=== PATIENT | female | born 1955 | race Caucasian/White ===

== ENCOUNTER 2016-08-02 13:24 | Outpatient (CLI) | payer OTHER | END 2016-08-02 23:59 | disposition short-term general hospital (02) | DX: R07.9 Chest pain, unspecified (principal) | CPT/HCPCS: A0170; A0425; A0427 ==

== ENCOUNTER 2016-08-23 10:28 | Outpatient (CLI) | payer OTHER | END 2016-08-23 10:29 | disposition home or self-care (01) | DX: R07.9 Chest pain, unspecified (principal); R00.2 Palpitations ==

== ENCOUNTER 2016-08-29 16:16 | Outpatient (CLI) | payer OTHER | END 2016-08-29 16:17 | disposition short-term general hospital (02) | LOC: EMS 16:16 | PROVIDERS: ATTEND Surgery | DX: R07.9 Chest pain, unspecified (principal); R20.2 Paresthesia of skin | CPT/HCPCS: A0425; A0427 ==

== ENCOUNTER 2018-11-20 12:03 | Outpatient (CLI) | payer OTHER ==
--- NOTE | 2018-11-20 15:16 | XRAY Report ---
Reason: PAIN OF LEFT HIP JOINT Procedure Date: 11/20/2018 Accession Number: [id number] / [id number] Procedure: XR - Hip w/Pelvis 2-3V LT CPT Code: FULL RESULT: EXAM: LEFT HIP RADIOGRAPHY EXAM DATE: 11/20/2018 12:31 PM. CLINICAL HISTORY: PAIN OF LEFT HIP JOINT. Left hip/groin pain for 2 months. Worse with activity. COMPARISON: XR HIP UNILAT MIN 2 VIEW 06/21/2011 2:[address] ABD AND PELVIS WITH CONTRAST 07/08/2012 2:10 PM. TECHNIQUE: 2 views. FINDINGS: Bones: No acute fracture or bony lesion. Minimal degenerative spurring. Joints: Mild joint space narrowing. No dislocation. Degenerative changes of the lower lumbar spine. Soft Tissues: Normal. No soft tissue swelling. IMPRESSION: 1. Mild degenerative changes of the left hip joint. RADIA
== END 2018-11-20 12:04 | disposition home or self-care (01) ==
LOC: DI 12:03
PROVIDERS: ATTEND Nurse Practitioner Family
DX: M16.12 Unilateral primary osteoarthritis, left hip (principal)

== ENCOUNTER 2019-01-12 19:15 | Observation (INO) | payer OTHER ==
--- NOTE | 2019-01-12 19:41 | ED Physician Documentation ---
PD HPI CHEST PAIN - Stated complaint Stated Complaint: CHEST PX/INCREASE BP - Chief complaint Chief Complaint: Cardiac - History obtained from History obtained from: Patient - History of Present Illness Timing - onset: Today Timing - duration: Hours (6) Timing - details: Gradual onset Quality: Indigestion Location: Substernal, Right chest Improved by: Nothing Associated symptoms: No: Shortness of air Similar symptoms before: Has not had sx before Recently seen: Not recently seen - Additional information Additional information: This is a 63-year-old woman who presents with her complains that around 2:00 in the afternoon she started to experience a little bit of heartburn she has reflux disease and did not think that much of it when she got home around 5 PM she took a Zantac and then was making dinner and she had felt drink some water and felt a little bit better. While she is making dinner she started to get this uncomfortable pain in her chest and then got this icy hot sensation that spread all the way upper upper torso and down her arms. That lasted for maybe 10 to 20 minutes. When she first got here she still had a little bit of residual pain in the right side of her chest but that is now gone. She is been feeling dizzy off and on for the past couple of days but did not feel short of breath with this. She does have a history of SVT and underwent ablation for that. Denies history of RI and has no family history of RI. She does see a rn employee health at [facility] cardiology and had a stress test done about 2 years ago. Patient has been having pain behind her left calf but denies any history of DVT and has had no peripheral edema. Review of Systems Constitutional: denies: Fever Eyes: denies: Loss of vision Ears: denies: Ear pain Nose: reports: Congestion Throat: denies: Sore throat Cardiac: reports: Chest pain / pressure, Palpitations, Calf pain. denies: Pedal edema Respiratory: denies: Dyspnea, Cough GI: reports: Nausea, Diarrhea. 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 : None HEENT: None Psych: Anxiety Musculoskeletal: None Derm: None - Past Surgical History Past Surgical History: Yes - Present Medications Home Medications: Ambulatory Orders Medication Instructions Recorded Confirmed ALPRAZolam [Xanax] 0.25 mg PO HS 04/05/13 03/24/16 Atenolol [Tenormin] 25 mg PO DAILY 04/05/13 03/24/16 Venlafaxine ER [Effexor ER] 75 mg PO DAILY 04/05/13 03/24/16 Omeprazole [PriLOSEC] 1 cap PO DAILY 03/24/16 03/24/16 oxyCODONE/ACET 5/325 [Percocet 5 1 - 2 each PO Q6H PRN #14 tablet 03/25/16 mg/325 mg] - Allergies Allergies/Adverse Reactions: Allergies Allergy/AdvReac Type Severity Reaction Status Date / Time azithromycin [From Zithromax] Allergy Intermediate upset Verified 01/12/19 19:21 stomach erythromycin base Allergy Intermediate stomach Verified 01/12/19 19:21 [Erythromycin Base] upset codeine AdvReac Intermediate Hallucinati Verified 01/12/19 19:21 ons - Social History Does the pt smoke?: No Smoking Status: Never smoker Does the pt drink ETOH?: Yes Does the pt have substance abuse?: No - Immunizations Immunizations are current?: Yes - POLST Patient has POLST: No PD ED PE NORMAL - Vitals Vital signs reviewed: Yes - General General: Alert and oriented X 3, No acute distress, Well developed/nourished, Other (She seems anxious, laughing inappropriately) - HEENT HEENT: Atraumatic, PERRL, Moist mucous membranes - Neck Neck: No adenopathy, Thyroid normal, No JVD - Cardiac Cardiac: RRR, No murmur - Respiratory Respiratory: No respiratory distress, Clear bilaterally - Abdomen Abdomen: Normal bowel sounds, Soft - Derm Derm: Normal color, No rash - Extremities Extremities: No deformity, No edema, No calf tenderness / cord - Neuro Neuro: Alert and oriented X 3, 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, No motor deficit, No sensory deficit, Normal speech - Psych Psych: Normal mood, Normal affect Results - Vitals Vitals: Vital Signs - 24 hr 01/12/19 01/12/19 01/12/19 19:21 19:46 21:30 Temperature 36.9 C Heart Rate 90 85 78 Respiratory 16 16 20 Rate Blood Pressure 194/108 H 175/91 H 159/91 H O2 Saturation 99 98 94 01/12/19 21:56 Temperature Heart Rate 84 Respiratory 17 Rate Blood Pressure 147/73 H O2 Saturation 97 Oxygen O2 Source Room air - EKG (time done) 1920 Rate: Rate (enter#) Rhythm: NSR QRS: Poor R wave progression Ischemia: ST depression (V5 and V6), Q waves (V1 and V2), Non specific changes Compare to prior EKG: Changed from prior EKG (Q waves are new from 2016) 2149 Rate: Rate (enter#) Rhythm: NSR Ischemia: ST depression, Q waves, Non specific changes Compare to prior EKG: Unchanged from prior EKG - Labs Labs: Laboratory Tests 01/12/19 01/12/19 01/12/19 19:45 19:45 19:45 WBC 7.6 RBC 4.04 L Hgb 12.1 Hct 36.5 L MCV 90.3 MCH 30.0 MCHC 33.2 RDW 12.4 Plt Count 194 MPV 10.2 Neut # (Auto) 4.7 Lymph # (Auto) 2.1 Bacon # (Auto) 0.5 Eos # (Auto) 0.2 Baso # (Auto) 0.1 Absolute Nucleated RBC 0.00 Nucleated RBC % 0.0 Sodium 141 Potassium 3.4 L Chloride 105 Carbon Dioxide 28 Anion Gap 8.0 BUN 19 Creatinine 0.9 Estimated GFR (MDRD) 63 L Glucose 118 H Calcium 8.9 Total Bilirubin 0.4 AST 17 ALT 17 Alkaline Phosphatase 94 Troponin I High Sens 2.4 Total Protein 7.4 Albumin 4.0 Globulin 3.4 Albumin/Globulin Ratio 1.2 Lipase 38 Urine Color Urine Clarity Urine pH Ur Specific [place] Urine Protein Urine Glucose (UA) Urine Ketones Urine Occult Blood Urine Nitrite Urine Bilirubin Urine Urobilinogen Ur Leukocyte Esterase Ur Microscopic Review Urine Culture Comments 01/12/19 01/12/19 19:53 23:15 WBC RBC Hgb Hct MCV MCH MCHC RDW Plt Count MPV Neut # (Auto) Lymph # (Auto) Bacon # (Auto) Eos # (Auto) Baso # (Auto) Absolute Nucleated RBC Nucleated RBC % Sodium Potassium Chloride Carbon Dioxide Anion Gap BUN Creatinine Estimated GFR (MDRD) Glucose Calcium Total Bilirubin AST ALT Alkaline Phosphatase Troponin I High Sens 9.7 Total Protein Albumin Globulin Albumin/Globulin Ratio Lipase Urine Color YELLOW Urine Clarity CLEAR Urine pH 6.0 Ur Specific [place] <=1.005 Urine Protein NEGATIVE Urine Glucose (UA) NEGATIVE Urine Ketones NEGATIVE Urine Occult Blood NEGATIVE Urine Nitrite NEGATIVE Urine Bilirubin NEGATIVE Urine Urobilinogen 0.2 (NORMAL) Ur Leukocyte Esterase NEGATIVE Ur Microscopic Review NOT INDICATED Urine Culture Comments NOT INDICATED PD MEDICAL DECISION MAKING - ED course Complexity details: reviewed results, re-evaluated patient, d/w patient, d/w family ED course: Patient was extremely anxious. She does have some EKG changes that were not present on a prior EKG in 2016. Her initial troponin is normal. Chest x-ray is clear. While waiting for repeat troponin she had 8 sequential beats of what appears to be a ventricular rhythm rate of about 100. She will be continued to be monitored while waiting for the repeat troponin. 2345: Repeat troponin was 9.7. I have a call into her rn employee health. 0015: Spoke with Dr. Paige who is on-call for cardiology. After reviewing the labs, EKG and rhythm strip the decision was made that she should be admitted for observation and stress testing tomorrow. Did not recommend anticoagulation at this time. Discussed with the hospitalist and he is agreed to accept the patient for admission. She did receive Xanax because she was so anxious when I went back into talk to her she told me that she got no relief for about 2 hours and that was all. Departure - Departure Disposition: 66 [facility] DC/Xfer Clinical Impression: Chest pain Qualifiers: Chest pain type: unspecified Qualified Code(s): R07.9 - Chest pain, unspecified
[2019-01-12 19:51] LABS: BASOPHILS # (AUTO) 0.1 10^3/uL (0.0-0.1); BASOPHILS % (AUTO) 0.7 %; EOSINOPHILS # (AUTO) 0.2 10^3/uL (0.0-0.7); EOSINOPHILS % (AUTO) 2.8 %; HGB - HEMOGLOBIN 12.1 g/dL (12.0-16.0); LYMPHOCYTES # (AUTO) 2.1 10^3/uL (1.5-3.5); LYMPHOCYTES % (AUTO) 27.3 %; MEAN CORPUSCULAR HGB CONC 33.2 g/dL (32.0-36.0); MEAN CORPUSCULAR VOLUME 90.3 fL (81.0-99.0); MEAN PLATELET VOLUME 10.2 fL (7.9-10.8); MONOCYTES # (AUTO) 0.5 10^3/uL (0.0-1.0); MONOCYTES % (AUTO) 7.1 %; NEUTROPHILS # (AUTO) 4.7 10^3/uL (1.5-6.6); NEUTROPHILS % (AUTO) 61.8 %; PLT - PLATELET COUNT 194 10^3/uL (130-450); RED BLOOD COUNT 4.04 10^6/uL (4.20-5.40); RED CELL DISTRIBUTION WIDTH 12.4 % (12.0-15.0); WHITE BLOOD COUNT 7.6 x10^3/uL (4.8-10.8)
[2019-01-12 20:05] LABS: ALBUMIN/GLOBULIN RATIO 1.2 (1.0-2.2); BILIRUBIN,TOTAL 0.4 mg/dL (0.2-1.0); CALCIUM 8.9 mg/dL (8.5-10.3); CREATININE 0.9 mg/dL (0.4-1.0); TOTAL PROTEIN 7.4 g/dL (6.7-8.2)
[2019-01-12] MEDS ORDERED: ONDANSETRON 4 MG/2 ML VIAL IVP STA (20:09)
[2019-01-12] MEDS ORDERED: ASPIRIN CHEW 81 MG TABLET PO STA (20:09)
[2019-01-12] MEDS ORDERED: FAMOTIDINE 20 MG/2 ML VIAL IVP STA (20:10)
[2019-01-12 20:32] LABS: BILIRUBIN,URINE NEGATIVE (NEGATIVE); GLUCOSE, URINE (UA) NEGATIVE (NEGATIVE); KETONES,URINE (UA) NEGATIVE (NEGATIVE); LEUKOCYTE ESTERASE, URINE NEGATIVE (NEGATIVE); NITRITE,URINE NEGATIVE (NEGATIVE); OCCULT BLOOD,URINE NEGATIVE (NEGATIVE); PROTEIN,URINE NEGATIVE (NEGATIVE); UROBILINOGEN,URINE 0.2 (NORMAL) E.U./dL (NORMAL)
[2019-01-12 20:40] LABS: CLARITY,URINE CLEAR (CLEAR)
--- NOTE | 2019-01-12 20:56 | XRAY Report ---
Reason: chest pain Procedure Date: 01/12/2019 Accession Number: [id number] / [id number] Procedure: XR - Chest 1 View X-Ray CPT Code: 13092 FULL RESULT: EXAM: CHEST RADIOGRAPHY EXAM DATE: 01/12/2019 08:21 PM. CLINICAL HISTORY: Chest pain. COMPARISON: CHEST 2 VIEW PA/LAT 03/20/2016 10:49 AM. TECHNIQUE: 1 view. FINDINGS: Lungs/Pleura: No focal opacities evident. No pleural effusion. No pneumothorax. Mediastinum: Within exam limitations, the cardiomediastinal contour is normal. Other: No bony abnormality identified. IMPRESSION: Normal single view chest. RADIA
[2019-01-12] MEDS ORDERED: ALPRAZolam 0.25 MG TABLET PO STA (21:33)
[2019-01-13] MEDS ORDERED: ACETAMINOPHEN 325 MG TABLET PO PRN (00:22)
[2019-01-13] MEDS ORDERED: SODIUM CHLORIDE FLUSH 0.9% 10 ML SYRINGE IVP PRN (00:22)
[2019-01-13] MEDS ORDERED: ONDANSETRON 4 MG/2 ML VIAL IVP PRN (00:22)
[2019-01-13] MEDS ORDERED: ATORVASTATIN 40 MG TABLET PO STA (00:29)
[2019-01-13] MEDS ORDERED: POTASSIUM CHLORIDE 20 MEQ TABLET PO STA (00:30)
--- NOTE | 2019-01-13 01:15 | HISTORY & PHYSICAL EXAMINATION ---
Chief Complaint - Chief Complaint Chief Complaint: Icy and hot feeling in my chest History of Present Illness - Admitted From Admitted From:: Home - History Obtained From Records Reviewed: Yes History obtained from: Patient, ER Physician - History of Present Illness HPI Comment/Other: This is a 63 year old female with a past medical history significant for SVT s/p ablation, GERD, and anxiety who presents from home after developing an icy and hot sensation in her chest. The sensation occurred around 6pm after she used the bathroom. It went away on it's own but then returned. It was intermittent in nature. She reports occasional achy chest pain over the right side of her chest. No alleviating or aggravating factors. The pain is non-radiating and is not associated with nausea, vomiting, or diaphoresis. She thought initially the discomfort may have been GERD and she took Zantac without improvement.She reports one episode of diarrhea today. She currently denies chest pain. Reports occasional palpitations but denies cough, dyspnea, lower extremity edema. She did measure her blood pressure at home and it was elevated in the 160's. Normally it is in the 120's. She had an ablation for SVT over 10 years ago. She takes Metoprolol. She is a nonsmoker and has no family history of heart disease. Denies history of diabetes. Reports having a normal stress about 1.5 years ago. Follows with [facility] in [place]. She does report left calf pain the occurred a few weeks. Reports the pain first started in her left achilles and extended to her calf. Denies pain at this time. In the ER, she was initially hypertensive with systolic in the 190's, and tachycardic in the 90's. Initial troponin was 2.4 and repeat was 9.7. Her EKG wa s changed compared to her prior and revealed sinus rhythm with Q waves in V1,V2 and LVH with early repolarization. The ER physician contacted the patient's Podiatry Assistant who recommended admission for stress test. She did receive Aspirin 325mg in the ER. 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 Her father also had diabetes. Denies history of heart disease. Living arrangement: At home Living Situation: With spouse/s.o. Social History Notes: She lives on [address] with her . She is a nonsmoker. - Substance History Use: Uses substance without health or social issues: NONE - POLST Patient has POLST: No Meds/Allgy - Home Medications Home Medications: Ambulatory Orders Medication Instructions Recorded Confirmed ALPRAZolam [Xanax] 0.25 mg PO HS PRN 04/05/13 03/24/16 Omeprazole [PriLOSEC] 1 cap PO DAILY 03/24/16 03/24/16 oxyCODONE/ACET 5/325 [Percocet 5 1 - 2 each PO Q6H PRN #14 tablet 03/25/16 mg/325 mg] Escitalopram [Lexapro] 10 mg PO DAILY 01/13/19 01/13/19 Metoprolol Tartrate 25 mg PO BID 01/13/19 01/13/19 - Allergies Allergies/Adverse Reactions: Allergies Allergy/AdvReac Type Severity Reaction Status Date / Time azithromycin [From Zithromax] Allergy Intermediate upset Verified 01/12/19 19:21 stomach erythromycin base Allergy Intermediate stomach Verified 01/12/19 19:21 [Erythromycin Base] upset codeine AdvReac Intermediate Hallucinati Verified 01/12/19 19:21 ons Review of Systems - Constitutional Constitutional: denies: Fatigue, Fever, Chills, Weakness, Poor appetite, Diaphoresis - Cardiovascular Cariovascular: reports: Chest pain. denies: Irregular heart rate, Palpitations, Edema, Lightheadedness, Exertional dyspnea, Decr. exercise tolerance - Respiratory Respiratory: denies: Cough, SOB at rest, SOB with exertion - Gastrointestinal Gastrointestinal: reports: Diarrhea, Reflux/heartburn. denies: Abdominal pain, Constipation, Nausea, Vomiting - Genitourinary Genitourinary: denies: Dysuria, Frequency, Urgency - Musculoskeletal Musculoskeletal: reports: Muscle pain. denies: Muscle weakness - Integumentary Integumentary: denies: Rash - Neurological Neurological: denies: General weakness, Focal weakness - Psychiatric Psychiatric: reports: Anxiety - All Other Systems All Other Systems: reports: Reviewed and negative Prior Level of Functionality: Independent with ADL's. Exam - Vital Signs Reviewed Vital Signs: Yes Vital Signs: Vital Signs x48h Temp Pulse Resp BP Pulse Ox 01/13/19 00:29 84 18 123/66 98 01/12/19 21:56 84 17 147/73 H 97 01/12/19 21:30 78 20 159/91 H 94 01/12/19 19:46 85 16 175/91 H 98 01/12/19 19:21 36.9 C 90 16 194/108 H 99 - Physical Exam General Appearance: positive: No acute distress, Alert, Mild distress ENT: positive: ENT inspection nml Neck: positive: Nml inspection Respiratory: positive: Chest non-tender, No respiratory distress. negative: Wheezes, Rales, Rhonchi Cardiovascular: positive: Regular rate & rhythm, No murmur. negative: Irregularly irregular, Extrasystoles, Tachycardia, Systolic murmur, Diastolic murmur Abdomen: positive: Non-tender, No distention. negative: Tenderness, Guarding, Rebound Skin: positive: Color nml, No rash, Warm, Dry Extremities: positive: Full ROM, No pedal edema. negative: Calf tenderness, Miguel's sign/cords Neurologic/Psychiatric: positive: Oriented x3, Motor nml, Sensation nml. negative: Disoriented to person, Disoriented to place, Disoriented to time, Weakness Conclusion/Plan - Problem List (1) Chest pain Conclusion/Plan: Her symptoms are concerning for ischemic heart disease given her abnormal EKG which shows new Q waves. Initial troponin is negative and remains negative but increased from 2.4 to 9.7. Her Podiatry Assistant recommended obtaining a stress test. Received Aspirin 325mg in the ER. - Continue Aspirin and start Statin - Continue home beta angel - NPO for Nuclear stress test in AM given her baseline abnormal EKG - Monitor on telemetry - Trend Troponin - Check A1c, Lipid panel - Check D-dimer given the history of left calf pain, if positive will obtain doppler Qualifiers: Chest pain type: unspecified Qualified Code(s): R07.9 - Chest pain, unspecified (2) Anxiety Conclusion/Plan: Stable. Takes Lexapro and Xanax PRN at home which will be continued. (3) Hypertension Conclusion/Plan: Initially hypertensive in the ER with systolic in the 190's but she is now normotensive without receiving antihypertensives. Will continue her home Meto prolol. (4) Personal history of supraventricular tachycardia Conclusion/Plan: She is status post ablation over 10 years. Reportedly had a 8 beat run of a vent ricular tachycardia while in the ER. The tele strip is not available to me. Will continue her home Metoprolol. (5) GERD (gastroesophageal reflux disease) Conclusion/Plan: This may be the cause of her chest discomfort but ischemic heart disease will need to be ruled out. On Zantac at home. Start Protonix. - Lab Results Lab results reviewed: Yes Maicol Bones: 01/12/19 19:45 01/12/19 19:45 - Diagnostic Imaging Results Diagnostic Imaging Results: positive: Final report reviewed - EKG Results EKG Interpreted Independently: Yes EKG Comparison: Changed from prior EKG EKG Findings: Sinus rhythm with q waves in V1 and V2. LVH with early repolarization. Core Measures - Anticipated LOS I expect patient to be DC'd or transferred within 96 hours.: Yes - Issues Hospital Issues and Management Plan: Chest pain requiring stress test. - DVT/VTE - Prophylaxis VTE/DVT Device ordered at admit?: Yes Not Ordered - Medical Reason: Not indicated
[2019-01-13] MEDS: SODIUM CHLORIDE FLUSH 0.9% 10 ML SYRINGE IVP SCH ×3 (01:44→17:40)
[2019-01-13 05:27] LABS: BUN - BLOOD UREA NITROGEN 15 mg/dL (6-20); CALCIUM 8.9 mg/dL (8.5-10.3); CARBON DIOXIDE - CO2 27 mmol/L (21-32); CHLORIDE 108 mmol/L (101-111); CHOL/HDL RATIO 4.1 (<4.4); CHOLESTEROL 196 mg/dL; CREATININE 0.7 mg/dL (0.4-1.0); GFR - MDRD 85 (>89); GLUCOSE 104 mg/dL (70-100); HDL CHOLESTEROL 48 mg/dL; LDL CHOLESTEROL,CALCULATED 132 mg/dL; LDL/HDL RATIO 2.8 (<4.4); SODIUM 142 mmol/L (135-145); VLDL CHOLESTEROL 16 mg/dL
[2019-01-13 05:35] LABS: HB2 TOTAL 12.4 g/dL; HEMOGLOBIN A1C 0.47 g/dL; HEMOGLOBIN A1C % 5.6 % (4.6-6.2)
[2019-01-13] MEDS ORDERED: PANTOPRAZOLE 40 MG TABLET PO SCH (07:00)
[2019-01-13] MEDS ORDERED: METOPROLOL TARTRATE 25 MG TABLET PO SCH (09:00)
[2019-01-13] MEDS ORDERED: ATENOLOL 25 MG TABLET PO SCH (09:00)
[2019-01-13] MEDS ORDERED: ESCITALOPRAM 10 MG TABLET PO SCH ×2 (09:00→11:00)
[2019-01-13] MEDS ORDERED: VENLAFAXINE ER 75 MG CAPSULE PO SCH (09:00)
[2019-01-13] MEDS ORDERED: ASPIRIN EC 81 MG TABLET PO SCH (09:00)
[2019-01-13] MEDS ORDERED: AMINOPHYLLINE 250 MG/10 ML VIAL ONE (11:57)
[2019-01-13] MEDS ORDERED: REGADENOSON 0.4 MG/5 ML SYRINGE IVP ONE ×2 (11:57→14:13)
--- NOTE | 2019-01-13 15:45 | CARDIAC PROCEDURE NOTE ---
DATE OF SERVICE: 01/13/2019 Physician: Geraldine Linton MD INDICATION: Chest pain. CARDIAC RISK FACTORS 1. Hypertension. 2. Postmenopausal status. DESCRIPTION OF PROCEDURE: After signing informed consent, the patient underwent a Lexiscan pharmaceutical stress test with nuclear myocardial perfusion imaging. RESTING HEART RATE: 69. PEAK HEART RATE: 106. RESTING BLOOD PRESSURE: 182/80. PEAK BLOOD PRESSURE: 160/60. Lexiscan was infused per protocol. The patient developed brief shortness of breath. Oxygen saturation was 99% on room air at this point. She also had a feeling of racing of her heart and her typical "icy/hot" chest discomfort feeling, which she rated 4/10. This improved in under a minute. RESTING EKG: Normal sinus rhythm, left atrial enlargement, poor R-wave progression in V1 through V4. EKG AT PEAK: New horizontal ST depressions in leads V5 and V6 of 1-2 mm, new flattening of T waves in V4 through V6. IMPRESSION 1. Abnormal resting EKG. 2. ST-segment and T-wave changes are seen with pharmaceutical stress, consistent with ischemia. 3. Nuclear images reported separately. 4. Cardiac risk status: Moderate- High. cc: Aliyah Marie NP TD: 01/13/2019 15:35 MTDD
--- NOTE | 2019-01-13 15:53 | Nuclear Medicine Report ---
Reason: CP Procedure Date: 01/13/2019 Accession Number: [id number] / [id number] Procedure: NM - Myocardial Perfusion STR/RST CPT Code: FULL RESULT: EXAM: SINGLE-ISOTOPE PHARMACOLOGICAL STRESS TEST WITH REGADENOSON. SINGLE-ISOTOPE AND ONE-DAY REST/STRESS MYOCARDIAL PERFUSION SCANS WITH TOMOGRAPHIC IMAGING, QUANTITATIVE ANALYSIS, WALL MOTION ANALYSIS AND CALCULATION OF EJECTION FRACTION. EXAM DATE: 01/13/2019 02:41 PM. CLINICAL HISTORY: Chest pain. COMPARISON: 03/05/2006. TECHNIQUE: After the intravenous administration of 10.8 mCi of Tc-99m sestamibi, a rest myocardial perfusion scan was done with tomography. Motion correction was applied when appropriate. After an appropriate delay, pharmacological stress was performed with the infusion of 0.4 mg regadenoson per protocol. According to protocol, 43.8 mCi of Tc-99m sestamibi was injected for stress myocardial perfusion scan. Motion correction was applied when appropriate. Gated tomographic images were obtained for wall motion analysis and computation of left ventricular ejection fraction. FINDINGS: There is an apparent moderate severity reversible defect in the septum. There is an apparent small mild reversible defect in the distal anterolateral wall. Computer analysis. Summed Stress Score 13 Summed Rest Score 1 Summed Difference Score 12 Wall motion analysis demonstrates anterior and septal wall hypokinesis. The left ventricular end-diastolic volume is 57 cc. The left ventricular end-systolic volume is 13 cc. The left ventricular ejection fraction is calculated to be 78%. IMPRESSION: 1. There are apparent reversible perfusion defects in the septum and in the distal anterolateral wall. 2. Left ventricular ejection fraction of 78%. 3. Hypokinesis of the anterior and septal andrade. 4. Normal left ventricular cavity size, no change with stress. 5. Based on computer analysis, moderately abnormal study with severe ischemia. Please correlate findings with stress ECG tracings and procedure notes. RADIA The call report notification system was initiated by Dr. Sedrick Pan at 03:52 PM on 01/13/2019. ADDENDUM: 01/13/19 16:00 The above call report findings were discussed with Dr. eGraldine Linton by Dr. Sedrick Pan at 04:00 PM on 01/13/2019.
--- NOTE | 2019-01-13 17:25 | Discharge Plan ---
Discharge Plan Problem Reviewed?: Yes Disposition: 02 Transfer Acute Care Hosp Condition: Serious Instruction Topics: Cardiac Biomarkers Blood, Troponin, Echo Dobutamine Stress No Smoking: If you smoke, Please STOP! Call for help. Follow-up with: Aliyah Marie ARNP [Primary Care Provider] -
--- NOTE | 2019-01-13 17:27 | DISCHARGE SUMMARY ---
Discharge Summary Admit Date: 01/12/19 Discharge Date: 01/13/19 Discharging Provider: Geraldine Linton MD Primary Care Provider: Aliyah Marie NP Code Status: Attempt Resuscitation Condition at Discharge: Serious Discharge Disposition: 02 Transfer Acute Care Hosp Dis[facility] - DIAGNOSES Admission Diagnoses: 1) Chest pain 2) HTN 3) Anxiety 4) Hx of SVT, successfully ablated Discharge Diagnoses with Status of Each Condition: See below - HPI History of Present Illness: From the H&P of Dr Chandu Mancilla: This is a 63 year old female with a past medical history significant for SVT s/p ablation, GERD, and anxiety who presents from home after developing an "icy and hot" discomfort sensation in her chest. The sensation occurred around 6pm after she used the bathroom. It went away on it's own but then returned. It was intermittent in nature. No alleviating or aggravating factors. The pain is non- radiating and is not associated with nausea, vomiting, or diaphoresis. She thought initially the discomfort may have been GERD and she took Zantac without improvement. She currently denies chest pain. Reports occasional palpitations bu t denies cough, dyspnea, lower extremity edema. She did measure her blood pressure at home and it was elevated in the 160's. Normally it is in the 120's. She had an ablation for SVT over 10 years ago. She takes Metoprolol. She is a nonsmoker and has no family history of heart disease. Denies history of diabetes. Reports having a normal stress about 2 years ago (done with no imaging). She does report left calf pain the occurred a few weeks. Reports the pain first started in her left achilles and extended to her calf. Denies pain at this time. In the ER, she was initially hypertensive with systolic in the 190's, and tachycardic in the 90's. Initial high sensitivity troponin was 2.4 and repeat was 9.7. Her EKG was changed compared to her prior and revealed sinus rhythm with Q waves in V1,V2 and LVH with repolarization changes. The ER physician contacted the patient's prior [facility] [facility] who recommended admission for stress test. She did receive Aspirin 325mg in the ER. - CONSULTS | PROCEDURES Procedures: Lexiscan pharmaceutical stress test with nuclear myocardial perfusion imaging. Complete Echo with Doppler. - HOSPITAL COURSE Hospital Course: 1) Unstable angina. The patient did have 2 more episodes of her typical chest discomfort, which occurred at rest but when she was nervous and BP was documented elevated (at 180-190 systolic). She was kept on her Metoprolol and started on daily aspirin, statin and sl NTG prn. She underwent a nuclear imaging stress test using pharmaceutical stress: during that she did briefly experience her typical chest discomfort and had new ST depressions and T wave flattening in V4-V6. The nuclear portion was read as having reperfusion defects in the septum and another in the maribeth-lateral wall, consistent with ischemia, and she had a preserved LVEF. A resting Echo showed LVH and normal LVEF as well. She was transferred for a coronary angio by [facility] ambulance to [facility]. 2) Hypertension. She was kept on her Metoprolol dose as at home. 3) Hyperlipidemia. She had a fasting lipid panel done that showed elevated LDL of 132, Triglycerides were 79 and HDL was 48. Her diet was reviewed and she was advised to decrease her usual intake of butter, ice cream, sour cream and waggoner. She was started on Lipitor 40 mg qhs. 4) Anxiety. She was kept on her home meds of Lexapro and prn Xanax. 5) GERD. Her home med was continued. 6) Headache. She complained of a headache when she was npo for testing, that did not respond to Tylenol, but did improve after Motrin. - ALLERGIES Allergies/Adverse Reactions: Allergies Allergy/AdvReac Type Severity Reaction Status Date / Time azithromycin [From Zithromax] Allergy Intermediate upset Verified 01/12/19 19:21 stomach erythromycin base Allergy Intermediate stomach Verified 01/12/19 19:21 [Erythromycin Base] upset codeine AdvReac Intermediate Hallucinati Verified 01/12/19 19:21 ons Eggplant AdvReac Intermediate Respiratory Verified 01/13/19 02:20 melon AdvReac Intermediate Respiratory Verified 01/13/19 02:21 walnut AdvReac Mild Respiratory Verified 01/13/19 02:22 - MEDICATIONS Home Medications: Ambulatory Orders Medication Instructions Recorded Confirmed ALPRAZolam [Xanax] 0.25 mg PO HS PRN 04/05/13 01/13/19 Omeprazole [PriLOSEC] 20 mg PO DAILY PRN 03/24/16 01/13/19 Escitalopram [Lexapro] 10 mg PO DAILY 01/13/19 01/13/19 Metoprolol Tartrate 25 mg PO BID 01/13/19 01/13/19 - PHYSICAL EXAM AT DISCHARGE General Appearance: positive: No acute distress Eyes Bilateral: positive: Normal inspection ENT: positive: ENT inspection nml, No signs of dehydration Neck: positive: Nml inspection, No JVD Respiratory: positive: No respiratory distress, Breath sounds nml Cardiovascular: positive: Regular rate & rhythm, No murmur Abdomen: positive: No distention Skin: positive: Color nml Extremities: positive: No pedal edema Neurologic/Psychiatric: positive: Oriented x3, Other (Intact) - LABS Result Diagrams: 01/12/19 19:45 01/13/19 04:59 - DIAGNOSTIC IMAGING Diagnostic Imaging Results: Final report reviewed - FOLLOW UP Follow Up: F/U with Cardiology, which will be determined after the coronary angiogram, and with her PCP after discharge. - TIME SPENT Time Spent in Discharge (Minutes): 45
[2019-01-13] MEDS: IBUPROFEN 600 MG TABLET PO SCH ×2 (17:41→17:50)
[2019-01-13] MEDS ORDERED: ALPRAZolam 0.25 MG TABLET PO PRN (17:46)
[2019-01-13] MEDS ORDERED: NITROGLYCERIN SL 0.4 MG TABLET SL PRN (17:47)
[2019-01-13 18:46] VITALS: BP 134/81
[2019-01-13] MEDS ORDERED: ATORVASTATIN 40 MG TABLET PO SCH (21:00)
[2019-01-13] MEDS ORDERED: METOPROLOL SUCCINATE 25 MG TABLET PO SCH (21:00)
== END 2019-01-13 19:05 | disposition short-term general hospital (02) ==
LOC: ED 19:15 → MS3 01-13 00:22
PROVIDERS: ADMIT Internal Medicine; ATTEND Internal Medicine
DX: I20.0 Unstable angina (principal); I10 Essential (primary) hypertension; E78.5 Hyperlipidemia, unspecified; K21.9 Gastro-esophageal reflux disease without esophagitis; R51 Headache; Z86.79 Personal history of other diseases of the circulatory system; Z98.890 Other specified postprocedural states; F41.9 Anxiety disorder, unspecified
CPT/HCPCS: 36415; 71045; 78452; 80048; 80053; 80061; 81003; 83036; 83690; 84484; 85025; 85379; 93005; 93017; 93306; 96374; 96375; 99285; A9270; A9500; G0378; J2785; 81001; 83721; 87086

== ENCOUNTER 2019-01-13 19:13 | Outpatient (CLI) | payer OTHER | END 2019-01-13 19:14 | disposition short-term general hospital (02) | LOC: EMS 19:13 | PROVIDERS: ATTEND Surgery | DX: I20.0 Unstable angina (principal); I10 Essential (primary) hypertension; F41.9 Anxiety disorder, unspecified | CPT/HCPCS: A0425; A0426 ==

== ENCOUNTER 2019-01-30 15:53 | Outpatient (CLI) | payer OTHER ==
--- NOTE | 2019-02-02 14:15 | XRAY Report ---
Reason: ACUTE BACK PAIN WITH SCIATICA Procedure Date: 01/30/2019 Accession Number: [id number] / [id number] Procedure: XR - Lumbar Spine 2 View CPT Code: FULL RESULT: EXAM: LUMBOSACRAL SPINE RADIOGRAPHY EXAM DATE: 01/30/2019 04:01 PM. CLINICAL HISTORY: ACUTE BACK PAIN WITH SCIATICA. COMPARISONS: None. TECHNIQUE: 3 views. FINDINGS: Alignment: Normal. No spondylolisthesis or scoliosis. Bones: Five [id number] lumbar vertebral bodies are present. No fractures or bone lesions. Disks: Degenerative loss of disk height at L4-L5 and L5-S1. Facets: Bilateral facet arthropathy from L3-S1 levels. Moderate to severe spinal canal and bilateral neural foraminal stenosis at L4-L5 and L5-S1 levels. Sacroiliac Joints: Unremarkable. Soft Tissues: Normal. The visualized bowel gas pattern is normal. IMPRESSION: No acute displaced fracture or malalignment. Degenerative changes with loss of disk height at L4-L5 and L5-S1. Bilateral facet arthropathy with suggestion of moderate to severe spinal canal and neural foraminal stenosis at L4-L5 and L5-S1. RADIA
== END 2019-01-30 15:54 | disposition home or self-care (01) ==
LOC: DI 15:53
PROVIDERS: ATTEND Nurse Practitioner Family
DX: M54.42 Lumbago with sciatica, left side (principal); M48.061 Spinal stenosis, lumbar region without neurogenic claudication
CPT/HCPCS: 72100

== ENCOUNTER 2019-11-03 20:20 | Outpatient (CLI) | payer OTHER | END 2019-11-03 23:59 | disposition home or self-care (01) | LOC: LAB 20:20 | PROVIDERS: ATTEND Physician Assistant | DX: R05 Cough (principal); Z20.828 Contact with and (suspected) exposure to other viral communicable diseases ==

== ENCOUNTER 2020-06-08 09:57 | Outpatient (CLI) | payer OTHER ==
--- NOTE | 2020-06-09 06:37 | Mammography Report ---
BILATERAL DIGITAL SCREENING MAMMOGRAM 3D/2D: 06/08/2020 CLINICAL: Routine screening. Routine screening. Comparison is made to exams dated: 03/31/2015 mammogram, 01/08/2014 mammogram, and 09/12/2012 mammogra m - [facility]. There are scattered fibroglandular elements in both breasts. There are new grouped calcifications in the right breast at 11 o'clock posterior depth. No other significant masses, calcifications, or other findings are seen in either breast. IMPRESSION: INCOMPLETE: NEEDS ADDITIONAL IMAGING EVALUATION The new grouped calcifications in the right breast are indeterminate. Magnification and lateral view s are recommended. This exam was interpreted at Station ID: [id number]. NOTE: For mammograms, a report in lay terms will be sent to the patient. Approximately 15% of breast malignancies will not be visualized mammographically. In the management of a palpable breast mass, a negative mammogram must not discourage biopsy of a clinically suspicious lesion. Electronically Signed By: Malick doty/joy:06/08/2020 11:05:43 ACR BI-RADS Category 0: Incomplete 3340F PARENCHYMAL PATTERN: (A) - The breast(s) demonstrate(s) scattered fibroglandular densities. BI-RADS CATEGORY: (0) - 0 RECOMMENDATION: (ADDMAM) - Recommend additional mammographic views. [id number] Immediate follow-up LATERALITY: (R)
== END 2020-06-08 09:58 | disposition home or self-care (01) ==
LOC: DI.S 09:57
PROVIDERS: ATTEND Registered Nurse
DX: Z12.31 Encounter for screening mammogram for malignant neoplasm of breast (principal)

== ENCOUNTER 2020-07-28 08:54 | Outpatient (CLI) | payer OTHER ==
[2020-07-28 15:51] LABS: ALBUMIN 4.2 g/dL (3.2-5.5); ALBUMIN/GLOBULIN RATIO 1.4 (1.0-2.2); ALKALINE PHOSPHATASE 85 IU/L (42-121); ALT ALANINE AMINOTRANSFERASE 20 IU/L (10-60); AST ASPARTATE AMINOTRANSFERASE 18 IU/L (10-42); BUN - BLOOD UREA NITROGEN 13 mg/dL (6-20); CALCIUM 9.2 mg/dL (8.5-10.3); CARBON DIOXIDE - CO2 29 mmol/L (21-32); CHLORIDE 102 mmol/L (101-111); CHOL/HDL RATIO 4.5 (<4.4); CHOLESTEROL 241 mg/dL; CREATININE 0.7 mg/dL (0.4-1.0); GFR - MDRD 84 (>89); GLUCOSE 110 mg/dL (70-100); HDL CHOLESTEROL 54 mg/dL; LDL CHOLESTEROL,CALCULATED 165 mg/dL; LDL/HDL RATIO 3.1 (<4.4); POTASSIUM 3.9 mmol/L (3.5-5.0); SODIUM 138 mmol/L (135-145); TOTAL PROTEIN 7.3 g/dL (6.7-8.2); TRIGLYCERIDES 110 mg/dL; VLDL CHOLESTEROL 22 mg/dL
== END 2020-07-28 08:55 | disposition home or self-care (01) ==
LOC: LAB.S 08:54
PROVIDERS: ATTEND Internal Medicine Cardiovascular Disease
DX: Z00.00 Encounter for general adult medical examination without abnormal findings (principal); E78.5 Hyperlipidemia, unspecified
CPT/HCPCS: 36415; 80053; 80061; 81599; 82172; 83721

== ENCOUNTER 2021-08-22 17:41 | Outpatient (CLI) | payer OTHER, MEDICARE ==
--- NOTE | 2021-08-22 18:35 | Ultrasound Report ---
PROCEDURE: Duplex Ext Veins Left INDICATIONS: PAIN IN LEFT CALF TECHNIQUE: Real-time imaging, as well as color and pulse Doppler interrogation, were performed of the lower extr emity deep veins from the inguinal ligament to the popliteal fossa. COMPARISON: None. FINDINGS: The deep veins are normally compressible, and free of intraluminal thrombus. Color and pu lse Doppler demonstrate normal phasic intraluminal flow. There is normal augmentation response to di stal compression maneuver. IMPRESSION: Negative for deep venous thrombosis of the left lower extremity Reviewed by: Kashif Barnes MD on 08/22/2021 6:34 PM PDT Approved by: Kashif Barnes MD on 08/22/2021 6:34 PM PDT Station ID: [id number]
== END 2021-08-22 17:42 | disposition home or self-care (01) ==
LOC: DI 17:41
PROVIDERS: ATTEND Nurse Practitioner Family
DX: M79.662 Pain in left lower leg (principal)

== ENCOUNTER 2022-02-28 12:30 | Outpatient (CLI) | payer OTHER, MEDICARE | END 2022-02-28 23:59 | disposition left against medical advice (07) | LOC: EMS 12:30 | DX: F41.9 Anxiety disorder, unspecified (principal); R09.89 Other specified symptoms and signs involving the circulatory and respiratory systems ==

== ENCOUNTER 2022-03-13 10:49 | Outpatient (CLI) | payer OTHER, MEDICARE ==
--- NOTE | 2022-03-14 12:34 | Ultrasound Report ---
PROCEDURE: Retroperitoneal INDICATIONS: KIDNEY DYSFUNCTION TECHNIQUE: Real-time scanning was performed of the retroperitoneal organs, with image documentation. COMPARISON: Report of CT abdomen and pelvis with, 07/06/2012. Images are not available. FINDINGS: Kidneys: Kidneys are normal in size. Right kidney measures 11.0 cm long; left kidney measures 11.2 cm long. Right renal cortical thickness is 1.6 cm; left renal cortical thickness is 1.3 cm. There i s a 1.0 x 0.9 x 1.0 cm cyst in mid right kidney with internal septation. There are couple of cysts in the superior pole left kidney measuring 2.1 x 1.8 x 1.9 cm a nd 2.0 x 2.0 x 2.1 cm. No solid masses, hydronephrosis, or nephrolithiasis. Pancreas: Visualized portions of the pancreas are sonographically normal. Aorta: Visualized aorta is normal in caliber at 3 cm or less. Iliac arteries: Proximal common iliac arteries are normal in caliber at 2.5 cm or less. IVC: Intrahepatic inferior vena cava is patent. Bladder: Pre-void bladder volume is 367 mL. Post-void residual is 40 mL. Pre-void images demonstra te no intraluminal masses or stones. On pre-void images, both ureteral jets are noted with color Dop pler interrogation. (Of note, ureteral jets may not be detectable in up to 25% of cases due to insuf ficient differences in specific gravity between ureteral and bladder urine). Miscellaneous: No free abdominal fluid. IMPRESSION: 1. Bilateral renal cortical cysts. The right renal cyst is mildly complex with internal septation. A follow-up ultrasound is suggested in 12 months. No solid renal masses. 2. No renal stones or hydronephrosis. 3. 40 mL post void residual in bladder. Reviewed by: Rudy Negrete MD on 03/14/2022 12:33 PM PST Approved by: Rudy Negrete MD on 03/14/2022 12:33 PM PST Station ID: [id number]
== END 2022-03-13 10:50 | disposition home or self-care (01) ==
LOC: DI 10:49
PROVIDERS: ATTEND Internal Medicine Nephrology
DX: N28.1 Cyst of kidney, acquired (principal)

== ENCOUNTER 2022-07-19 12:12 | Outpatient (CLI) | payer OTHER, MEDICARE ==
--- NOTE | 2022-07-19 13:14 | XRAY Report ---
PROCEDURE: Cervical Spine 2 View INDICATIONS: NECK PAIN TECHNIQUE: 4 view(s) of the cervical spine were acquired. COMPARISON: None. FINDINGS: Bones: No fractures or dislocations to the C7 level. The lateral masses of C1 appear intact on the odontoid view. No suspicious bony lesions. There is some moderate degenerative disc disease present C4-5 C5-6 and C6-7. Soft tissues: No prevertebral soft tissue swelling. IMPRESSION: 1. No evidence for acute osseous abnormality involving the cervical spine. 2. Moderate degenerative disc disease present C4-5, C5-6, and C6-C7. Reviewed by: James Woods MD on 07/19/2022 1:13 PM PDT Approved by: James Woods MD on 07/19/2022 1:13 PM PDT Station ID: [id number]
== END 2022-07-19 12:13 | disposition home or self-care (01) ==
LOC: DI 12:12
PROVIDERS: ATTEND Nurse Practitioner Family
DX: M50.321 Other cervical disc degeneration at C4-C5 level (principal)

== ENCOUNTER 2022-07-31 08:03 | Outpatient (CLI) | payer OTHER, MEDICARE ==
--- NOTE | 2022-07-31 09:54 | DEXA Report ---
PROCEDURE: Dexa Spine and/or Hip INDICATIONS: POST MENOPAUSAL TECHNIQUE: Dual energy x-ray absorptiometry (DXA) was performed on a [employer] System. Regions measur ed are the AP Spine, femoral neck, and if needed forearm. COMPARISON: None. FINDINGS: Lumbar Spine: Bone Mineral Density 1.014 g/cm/cm,T score -1.4, osteopenia Left Femoral Neck: Bone Mineral Density 0.765 g/cm/cm, T score -2.0, osteopenia Left Hip: Bone Mineral Density 0.786 g/cm/cm,T score -1.8, osteopenia (T score greater or equal to -1.0: NORMAL) (T score from -1.1 to -2.4: OSTEOPENIA) (T score less than or equal to -2.5 to: OSTEOPOROSIS) Impression: Bone mineral density is within the osteopenia range. Patients with diagnosis of osteoporosis or osteopenia should have regular bone mineral density assess ment. For those eligible for Medicare, routine testing is allowed once every 2 years. Testing frequ ency can be increased for patients who have rapidly progressing disease or for those who are receivin g medical therapy to restore bone mass. Reviewed by: Malick Gautam MD on 07/31/2022 9:52 AM PDT Approved by: Malick Gautam MD on 07/31/2022 9:52 AM PDT Station ID: [id number]
== END 2022-07-31 08:04 | disposition home or self-care (01) ==
LOC: DI 08:03
PROVIDERS: ATTEND Physician Assistant
DX: Z78.0 Asymptomatic menopausal state (principal); M85.89 Other specified disorders of bone density and structure, multiple sites

== ENCOUNTER 2022-08-03 08:00 | Outpatient (CLI) | payer OTHER, MEDICARE | END 2022-08-03 23:59 | disposition home or self-care (01) | LOC: LAB.S 08:00 | PROVIDERS: ATTEND Physician Assistant Medical | DX: R30.0 Dysuria (principal) | CPT/HCPCS: 87086 ==

== ENCOUNTER 2022-11-19 08:24 | Outpatient (CLI) | payer OTHER, MEDICARE | END 2022-11-19 23:59 | disposition short-term general hospital (02) | LOC: EMS 08:24 | DX: R07.89 Other chest pain (principal); M54.9 Dorsalgia, unspecified | CPT/HCPCS: A0425; A0427 ==

== ENCOUNTER 2023-04-28 14:53 | Outpatient (CLI) | payer MEDICARE ==
--- NOTE | 2023-04-29 02:08 | Ultrasound Report ---
PROCEDURE: Renal (Retroperitoneal) INDICATIONS: RENAL CYST TECHNIQUE: Real-time scanning was performed of the retroperitoneal organs, with image documentation. COMPARISON: 03/13/2022. FINDINGS: Kidneys: Kidneys are normal in size. Right kidney measures 9.7 cm long; left kidney measures 10.8 c m long. Right renal cortical thickness is 0.8 cm; left renal cortical thickness is 0.6 cm. No solid masses, hydronephrosis, or nephrolithiasis. There is a 1.1 x 0.9 x 1.3 cm right mid pole cyst conta ining a thin septation, similar to prior. Left renal cysts measuring 1.8 x 2.2 x 1.3 cm and 1.9 x 2.1 x 1.8 cm, not significantly changed compared to prior. Bladder: Pre-void bladder volume is 127.3 mL. Post-void residual is 20.0 mL. Pre-void images demon strate no intraluminal masses or stones. On pre-void images, bilateral ureteral jets are noted with color Doppler interrogation. (Of note, ureteral jets may not be detectable in up to 25% of cases due to insufficient differences in specific gravity between ureteral and bladder urine). Miscellaneous: No free abdominal fluid. IMPRESSION: Stable bilateral renal cysts. No nephrolithiasis or hydronephrosis. 20 cc post void residual bladder volume. Reviewed by: Lena Coates MD on 04/29/2023 2:07 AM PST Approved by: Lena Coates MD on 04/29/2023 2:07 AM PST Station ID: [id number]
== END 2023-04-28 14:54 | disposition home or self-care (01) ==
LOC: DI 14:53
PROVIDERS: ATTEND Internal Medicine Nephrology
DX: N28.1 Cyst of kidney, acquired (principal)

== ENCOUNTER 2023-07-30 10:10 | Outpatient (CLI) | payer MEDICARE, OTHER ==
--- NOTE | 2023-07-30 11:01 | Sleep Patient Instructions ---
Sleep Center Visit Summary - Patient Visit Information Reason for Visit: Initial consult for evaluation of sleep disordered breathing and other sleep issues. - Patient Instructions Instructions Attached: Sleep Study Additional Instructions: You will be completing a sleep study, either an in-lab polysomnography (PSG) or home sleep study (HST). You will follow-up in the sleep care office after the sleep study is completed to hear the results and talk about therapy, if needed. You will be called by our office staff to schedule this appointment, but you may contact us with any questions. - Clinic Information Contact: [facility] [address] [place] [address] [email or web address] T: [phone]
[2023-07-30 11:09] VITALS: BP 136/79; O2SAT 97
--- NOTE | 2023-07-30 11:09 | SLEEP CARE CONSULTATION ---
Information from patient questionnaire entered by Sayra Das. I have reviewed and concur with the information entered by Sayra Das. This document represents the service I personally performed and the decisions made by me, Eda Kennedy ARNP. History of Present Illness Service Date and Time: 07/30/2023 1010 Reason for Visit: New patient Chief Complaint: reports: Insomnia, Unrefreshed sleep, Snoring, Frequent awakenings at night Date of Onset: YRS Usual bedtime: 2200 Time it takes to fall asleep: A FEW MINS Snores at night: Yes Observed to quit breathing while asleep: Yes Sleeps alone due to snoring: No Number of times waking at night: 2-3 Reasons for waking at night: reports: Snoring, Gasping for air (couple times), Pain, Bathroom, Other (DOGS). denies: Choking Toss, Turn, or Twitch while sleeping: Yes Recalls having dreams: Yes (has very vivid dreams) Usually gets out of bed at: 0800 Feels refreshed in the morning: Yes (lately good but usually not feeling rested) Morning headache: No Sleepy or fatigued during the day: Yes Ever fallen asleep while driving: No Takes day naps: No Dreams during day naps: No Prior sleep studies: No Additional HPI information: I had the pleasure of seeing BALDO SON today regarding the possibility of her having a sleep disorder. Her current complaints are frequent night awakenings, insomnia, has observed pauses in breathing, snoring and unrefreshed sleep. She says when she gets in a good sleep that she feels like something is blocking her throat. He tells her she snores and will stop breathing at night. She thinks her jaw is falling back when laying on her back but she snores even on her side. She says she has cardiac arrhythmias and has had an ablation. - Parasomnia Symptoms Ever been unable to move upon waking from sleep: No Walks in sleep: Yes (USED TO) Talks in sleep: Yes (has yelled out) Ever acted out dreams in sleep: Yes (has fallen out of bed) Ever felt weak in the knees when startled or emotional: No Bothered by creepy, crawly, restless sensations in legs: Yes (when overtired, usually one of legs; has back issues) Problems with memory or concentration: Yes (both a little bit) Subjective Initial Taylors Sleepiness Scale score: 3 (07/30/23) Past Medical History Past Medical History: reports: Hypertension, Claustrophobia, Arrythmia, Fibromyalgia, Anxiety, Asthma (SEASONAL OR WITH URI), GERD Social History The patient's occupation is a [employer]. Patient is and lives in [place]. Have you smoked in the past 12 months: No Alcohol use: No Caffeine use: No Family History Family history of sleep disordered breathing: No Family Hx Sleep Apnea: Father: Snoring Allergies and Home Medications Known drug allergies: Yes (as listed) Drug allergies reviewed: Yes Home medication list reviewed: Yes (as listed) Allergy and home medication list: Allergies azithromycin [From Zithromax] Allergy (Intermediate, Verified 07/26/23 12:42) upset stomach erythromycin base [Erythromycin Base] Allergy (Intermediate, Verified 07/26/23 1 2:42) stomach upset codeine Adverse Reaction (Intermediate, Verified 07/26/23 12:42) Hallucinations Eggplant Adverse Reaction (Intermediate, Verified 07/26/23 12:42) Respiratory melon Adverse Reaction (Intermediate, Verified 07/26/23 12:42) Respiratory walnut Adverse Reaction (Mild, Verified 07/26/23 12:42) Respiratory Home Medications Medication Instructions Recorded Confirmed Last Taken Type ALPRAZolam [Xanax] 0.25 mg PO HS PRN 04/05/13 07/30/23 03/24/16 History Escitalopram [Lexapro] 10 mg PO DAILY 01/13/19 07/30/23 1 Day Ago History ~01/12/19 Nutriful See Rx Instructions .ROUTE .COMPLEX 07/30/23 Unknown History Omeprazole See Rx Instructions .ROUTE .COMPLEX 07/30/23 07/30/23 Unknown History Valsartan See Rx Instructions .ROUTE .COMPLEX 07/30/23 07/30/23 Unknown History carvediloL [Coreg] See Rx Instructions .ROUTE .COMPLEX 07/30/23 07/30/23 Unknown History OTC Sight Care for eyes Review of Systems Weight loss over past 5 years: 10+ Cardiovascular: reports: high blood pressure, palpitations, irregular heart rate or pulse Psychiatric: reports: anxiety, claustrophobia Ear/Nose/Throat: reports: dry mouth/throat, wisdom teeth removed Musculoskeletal: reports: neck pain, back pain, other (HIP PAIN) Immunologic: reports: allergies to food or environment Physical Exam Vital signs obtained and entered by: SAYRA Whitley MA Blood Pressure: 136/79 (LEFT ARM) Cuff size: regular Heart Rate: 66 O2 Saturation: 97 Height: 5 ft 5 in Weight: 190 lb 6.4 oz Body Mass Index: 31.6 BMI Classification: Obese Neck circumference: 13.5 Mouth and throat: narrow oropharynx Soft palate: long Hard palate: normal Uvula: normal Uvula visualization: 25% Mallampati Class III Tongue: enlarged in size with teeth schaffer on lateral edges Tonsils: small Neck: normal w/o lymphadenopathy or thyromegaly Heart: regular rate and rhythm Lungs: clear bilaterally Impression and Plan 1. Suspected Obstructive Sleep Apnea-Hypopnea Syndrome, as suggested by a history of loud and irregular snoring, observed cessation of breath while asleep, gasping or choking in sleep, frequent awakening during the night, unrefreshed sleep and cognitive impairment. Narrow oropharynx and obesity are common predisposing factors for obstructive sleep apnea-hypopnea syndrome. I recommend proceeding to polysomnography to confirm the diagnosis and to assess severity. If the patient has significant sleep disordered breathing, a manual CPAP titration study will also be performed to find the optimal treatment pressure. I informed the patient of what the sleep studies involve and after some discussion, obtained agreement to proceed. The pathophysiology of obstruct nguyễn sleep apnea-hypopnea syndrome was discussed with the patient and health risks of cardiovascular and cerebrovascular disease if not treated. Risks of drowsy driving discussed in detail and patient advised to avoid long distance driving and to basting puller at the first sign of drowsiness. Patient agreed to plan. * Schedule polysomnography. * Avoid long distance driving or driving when feeling sleepy. * Avoid alcohol, sedative and muscle relaxant around bedtime. * Attempt to lose weight. * Review instructions provided by trained office staff on how to prepare for the sleep study. * Return for follow-up after sleep study completed. Counseling Topics: Weight loss health impact Plan: PSG Visit Type: In Office Time Spent with Patient (minutes): 35 Provider Statement: I spent 100% of the Face to Face Visit with the patient with greater than 50% spent counseling the patient and coordination of care.
== END 2023-07-30 10:11 | disposition home or self-care (01) ==
LOC: SC 10:10
PROVIDERS: ATTEND Nurse Practitioner Family
DX: G47.8 Other sleep disorders (principal); R06.83 Snoring; R06.81 Apnea, not elsewhere classified; R41.89 Other symptoms and signs involving cognitive functions and awareness; I10 Essential (primary) hypertension; I49.9 Cardiac arrhythmia, unspecified; E66.9 Obesity, unspecified; Z68.31 Body mass index [BMI] 31.0-31.9, adult
CPT/HCPCS: 99203; G0463; 99212

== ENCOUNTER 2023-09-02 19:42 | Outpatient (CLI) | payer MEDICARE, OTHER | END 2023-09-02 19:43 | disposition home or self-care (01) | LOC: SC 19:42 | PROVIDERS: ATTEND Nurse Practitioner Family | DX: G47.33 Obstructive sleep apnea (adult) (pediatric) (principal); G47.61 Periodic limb movement disorder; E66.9 Obesity, unspecified; Z68.31 Body mass index [BMI] 31.0-31.9, adult | CPT/HCPCS: 95810 ==

== ENCOUNTER 2023-10-02 13:30 | Outpatient (CLI) | payer MEDICARE, OTHER ==
--- NOTE | 2023-10-02 14:06 | Sleep Patient Instructions ---
Sleep Center Visit Summary - Patient Visit Information Reason for Visit: Sleep study follow-up - Patient Instructions Instructions Attached: CPAP Additional Instructions: You are being started on CPAP therapy with pressure setting at 4-15 cmH2O. You w ill need to call the sleep care office to set up your follow up once you have your CPAP machine to check compliance and response to therapy at that time. You may call the office with any concerns about pressure feeling too low or too much for adjustment, if needed. You should contact DME supplier for any questions or concerns about mask or equipment. Please call office to schedule a follow up appointment in the sleep care office one month after obtaining new device. - Clinic Information Contact: [facility] [address] [place] [address] [email or web address] T: [phone]
[2023-10-02 14:14] VITALS: BP 140/90; O2SAT 99
--- NOTE | 2023-10-02 14:14 | SLEEP CARE CONSULTATION ---
Information from patient questionnaire entered by Sayra Das. I have reviewed and concur with the information entered by Sayra Das. This document represents the service I personally performed and the decisions made by me, Eda Kennedy ARNP. History of Present Illness Service Date and Time: 10/02/2023 1330 Initial [place] Sleepiness Scale score: 3 (07/30/23) Current [place]agon Sleepiness Scale score: 4 (10/02/23) Additional HPI information: BALDO SON returns for follow up and results of the recently performed polysomnography. The sleep study done on 09/02/23 showed moderate obstructive sleep apnea with an average AHI of 21.8 and jose oxygen saturation of 85%. She also had moderate PLMs. I explained the pathophysiology behind obstructive sleep apnea. We then spent quite a bit of time discussing different treatment options. For mild obstructive sleep apnea, surgery and oral appliance are alternatives to nasal CPAP therapy but in moderate or severe cases, nasal CPAP is the most effective and reliable treatment. I reviewed the impact of weight changes on sleep apnea and strongly recommended losing weight. After some discussion, the patient opted to go with the nasal CPAP therapy. Nasal autoCPAP set at 4-15 cmH20 will be ordered with rationale explained. A manual titration study will be ordered if unable to find optimal pressure with office adjustments. I explained how CPAP machine works and what to expect when using the machine. Using CPAP every night in order to get used to it was emphasized. Patient advised to put CPAP mask on before getting into bed so as not to fall asleep without CPAP. To assist acclimation to CPAP use, it could also be used for a short time during day while reading or watching TV. The patient was instructed to call the CPAP supplier to discuss any mechanical probl em that may occur. If the mask given is uncomfortable or is difficult to keep on through the night even with adjustment, contact the CPAP supplier as many will replace with another mask style if notified before 30 days. If snoring or perceives is not getting enough air or too much air from the machine, notify this office. Patient counseled not drink alcohol less than 4 hours before bedtime as it can increase snoring and apnea. Patient was cautioned about risks of drowsy driving until sleepiness symptoms resolve. Patient denies drowsy driving. Sleep Study - Results Type of Sleep Study: Polysomnography (COMPLETED 09/02/23) Prior sleep studies: No Polysomnography/Home Sleep Study results: IMPRESSION: The quality of the study is good. The patient had slightly reduced sleep efficiency due to frequent awakenings during the night. The sleep architecture was abnormal for sleep fragmentation and reduced amount of time spent in slow wave sleep (N3). Respiratory monitoring showed moderate obstructive sleep apnea-hypopnea (AHI = 21.8) associated with frequent arousals, oxyhemoglobin desaturation and mild hypoxia (jose oxygen saturation of 85%). The respiratory events occurred predominantly during supine sleep (supine AHI = 64.7; nonsupine = 16.06). Snore was moderate to loud in intensity. There was moderate periodic leg movement of sleep1.4. Cardiac rhythm was normal sinus rhythm without significant arrhythmia. No abnormal behavior (parasomnia) observed during the night. Allergies and Home Medications Known drug allergies: Yes (as listed) Drug allergies reviewed: Yes Home medication list reviewed: Yes (reduced Valsartan to 160 mg) Allergy and home medication list: Allergies azithromycin [From Zithromax] Allergy (Intermediate, Verified 09/30/23 10:53) upset stomach erythromycin base [Erythromycin Base] Allergy (Intermediate, Verified 09/30/23 10:53) stomach upset codeine Adverse Reaction (Intermediate, Verified 09/30/23 10:53) Hallucinations Eggplant Adverse Reaction (Intermediate, Verified 09/30/23 10:53) Respiratory melon Adverse Reaction (Intermediate, Verified 09/30/23 10:53) Respiratory walnut Adverse Reaction (Mild, Verified 09/30/23 10:53) Respiratory Review of Systems Review of systems same as previous: Yes (NO CHANGE) Physical Exam Vital signs obtained and entered by: SAYRA Whitley MA Blood Pressure: 140/90 (LEFT ARM) Cuff size: long Heart Rate: 64 O2 Saturation: 99 Height: 5 ft 5 in Weight: 189 lb 12.8 oz Body Mass Index: 31.6 BMI Classification: Obese Impression and Plan 1. Obstructive Sleep Apnea-Hypopnea Syndrome, moderate, with lowest oxygen saturation of 85%. Obviously this is the cause of the patients symptoms of unrefreshed sleep, and excessive daytime sleepiness. Positive pressure therapy could benefit hypertension, arrhythmia, anxiety and gastric reflux. As men tioned above, the patient will be started on nasal autoCPAP therapy with pressure set at 4-15 cmH2O. A manual titration study will be completed if unable to find optimal treatment pressure with office adjustments. Compliance guidelines also reviewed. A copy of compliance guidelines will be given for reference at check out. Because the apnea is more severe supine, I instructed to avoid sleeping supine using pillow positioning until able to start CPAP use. 2. Periodic limb movement, moderate, that did not fragment patients sleep. Periodic limb movement of sleep (PLMS) is characterized by episodes of repetitive limb movements that occur during sleep and usually involve the lower limbs. The etiology is unknown. Sleep hygiene methods can also improve sleep as well as lifestyle changes such as regular exercise. Patient was advised that no treatment is needed at this time. If symptoms increase, then further evaluation is indicated. 3. Hypoxemia, mild, with a jose oxygen saturation of 85% and 0.4 minutes spent under 90%. The baseline oxygen saturation was normal with an average oxygen saturation of 94%. 4. Obesity, unspecified. Currently patients BMI is 31.6. Obesity increases the risk of apnea, CPAP pressure requirements and overall health risks especially cardiovascular and diabetes. Thus patient is advised to lose weight. * Nasal auto CPAP therapy, pressure at 4-15 cmH2O. * Attempt to lose weight. * Avoid alcohol consumption near bedtime. * Avoid supine sleep until using CPAP. * The patient is again cautioned about driving until sleepiness completely resolves. * Return one month after CPAP obtained. I will assess response to therapy and compliance at that time. . Counseling Topics: Sleeping position, Weight loss health impact Plan: start CPAP and compliance followup Visit Type: In Office Time Spent with Patient (minutes): 29 Provider Statement: I spent 100% of the Face to Face Visit with the patient with greater than 50% spent counseling the patient and coordination of care.
== END 2023-10-02 13:31 | disposition home or self-care (01) ==
LOC: SC 13:30
PROVIDERS: ATTEND Nurse Practitioner Family
DX: G47.33 Obstructive sleep apnea (adult) (pediatric) (principal); G47.61 Periodic limb movement disorder; R09.02 Hypoxemia; E66.9 Obesity, unspecified; Z68.31 Body mass index [BMI] 31.0-31.9, adult
CPT/HCPCS: 99213; G0463; 99212

== ENCOUNTER 2024-01-14 12:45 | Outpatient (CLI) | payer MEDICARE, OTHER ==
--- NOTE | 2024-01-14 13:30 | Sleep Patient Instructions ---
Sleep Center Visit Summary - Patient Visit Information Reason for Visit: First compliance follow-up for PAP therapy - Patient Instructions Instructions Attached: Apnea Sleep Mouthpieces Additional Instructions: You were here for follow up of CPAP therapy. You will be continued on CPAP therapy with pressure at 4-6 cmH2O. Please let us know if the pressure change is uncomfortable and we can make further adjustments of the pressure. I have written for the oral appliance. Please let us know when you get this so we can coordinate your follow up. You should follow up with sleep care in 1-2 months. You may contact us sooner for any questions or concerns. - Clinic Information Contact: [facility] [address] [place] [address] [email or web address] T: [phone]
--- NOTE | 2024-01-14 13:35 | SLEEP CARE CONSULTATION ---
Information from patient questionnaire entered by Sujata Montez. I have reviewed and concur with the information entered by Sujata Montez. This document represents the service I personally performed and the decisions made by , Eda Kennedy ARNP. History of Present Illness Service Date and Time: 01/14/2024 1300 Previous diagnosis: Moderate, Obstructive Sleep Apnea-Hypopnea Syndrome AHI: 21.8 (09/02/23) Reason for follow up: first compliance (Set up 11/12, Resmed) Equipment type: CPAP (Resmed Airsense 11, s/u 11/12) Equipment obtained from: Other ([facility]) Mask style: Nasal Mask brand: Resmed (AirFit [id number]) Backup mask available: No Prior sleep studies: No Type of Sleep Study: Polysomnography (COMPLETED 09/02/23) HPI additional information: BALDO SON was diagnosed to have moderate, AHI 21.8, obstructive sleep apnea-hypopnea syndrome and returned today for CPAP therapy first compliance follow-up. Sleep Study - Results Type of Sleep Study: Polysomnography (COMPLETED 09/02/23) Prior sleep studies: No CPAP Compliance Data - Data Reviewed with Patient Average duration of nightly device use: 1 h 27 mins Compliance rate %: 0 ( days used) Current pressure setting (cmH2O): 4 - 8 (median 5.6, avg 7.9) Average residual AHI: 4.0 Central apnea: 1.1 Obstructive apnea: 1.2 Hypopnea: 0.7 Average large leak: 0.6 L/min Subjective Initial [place] Sleepiness Scale score: 3 (07/30/23) Allergies and Home Medications Known drug allergies: Yes (as listed) Drug allergies reviewed: Yes Home medication list reviewed: Yes (NAC (amino acid)) Allergy and home medication list: Allergies azithromycin [From Zithromax] Allergy (Intermediate, Verified 01/14/24 12:45) upset stomach erythromycin base [Erythromycin Base] Allergy (Intermediate, Verified 01/14/24 12:45) stomach upset codeine Adverse Reaction (Intermediate, Verified 01/14/24 12:45) Hallucinations Eggplant Adverse Reaction (Intermediate, Verified 01/14/24 12:45) Respiratory melon Adverse Reaction (Intermediate, Verified 01/14/24 12:45) Respiratory walnut Adverse Reaction (Mild, Verified 01/14/24 12:45) Respiratory Home Medications ALPRAZolam [Xanax] 0.25 mg PO HS PRN 04/05/13 [History] Escitalopram [Lexapro] 10 mg PO DAILY 01/13/19 [History] Nutriful See Rx Instructions .ROUTE .COMPLEX 07/30/23 [History] Omeprazole See Rx Instructions .ROUTE .COMPLEX 07/30/23 [History] Sight Care See Rx Instructions .ROUTE .COMPLEX 07/30/23 [History] Valsartan See Rx Instructions .ROUTE .COMPLEX 07/30/23 [History] carvediloL [Coreg] See Rx Instructions .ROUTE .COMPLEX 07/30/23 [History] NAC (amino acid) Review of Systems Review of systems same as previous: No (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 Obstructive Sleep Apnea-Hypopnea Syndrome, moderate, with poor treatment compliance and good apnea control. She states she is waking up 1 to 2 hours into using the CPAP because the pressure is going so high. She has not been able to keep her mask on for more than 1 and half hours on average. We discussed different options for her including oral appliance with positional therapy, surgical options and continuing the CPAP because she has severe obstructions when she sleeps supine. She would like to look into the oral appliance with positional therapy. In the meantime she we will continue to use her CPAP and I will adjust it to 4-6 cmH2O for patient comfort. We will try to follow-up with her in 1 to 2 months or if able to get the oral appliance made we will follow-up once she has used it for about a month. Patient's apnea severity and rationale for treatment to reduce apnea, improve sleep quality and reduce cardiovascular and cerebrovascular events was reviewed. I also reviewed the benefit of consistent device use of CPAP for hypertension, arrhythmia, gastric reflux, anxiety. 2. Obesity, unspecified. Currently patients BMI is 32.1. She has gained weight. Obesity increases the risk of apnea, CPAP pressure requirements and overall health risks especially cardiovascular and diabetes. Thus patient is advised to lose weight. * Change auto CPAP pressure to 4-6 cmH2O * Oral appliance with positional therapy * Notify me if snoring with mask or feeling that the pressure is too much or too little * Attempt to lose weight * Call this office if any problems using CPAP * Return for follow up in 1-2 months, or sooner if concerns arise Adjust device pressure to (cmH2O): 4-6 Counseling Topics: Spare mask, Weight loss health impact Prescriptions: Other (Oral appliance) Follow up with Sleep Care in: 1-2 months Visit Type: In Office Time Spent with Patient (minutes): 29 Provider Statement: I spent 100% of the Face to Face Visit with the patient with greater than 50% spent counseling the patient and coordination of care.
[2024-01-14 13:41] VITALS: BP 140/79; O2SAT 98
== END 2024-01-14 12:46 | disposition home or self-care (01) ==
LOC: SC 12:45
PROVIDERS: ATTEND Nurse Practitioner Family
DX: G47.33 Obstructive sleep apnea (adult) (pediatric) (principal); E66.9 Obesity, unspecified; Z68.32 Body mass index [BMI] 32.0-32.9, adult
CPT/HCPCS: 99213; G0463; 99212